=== PATIENT | female | born 1960 | race Caucasian/White ===

== ENCOUNTER 2017-12-13 05:01 | Observation (INO) | payer OTHER ==
[2017-12-13] MEDS ORDERED: LIDOCAINE 1% 2 ML INJ ONE (05:22)
[2017-12-13] MEDS ORDERED: ACETAMINOPHEN 500 MG TAB PO ONE (05:33)
[2017-12-13] MEDS ORDERED: THROMBIN (BOVINE) 5,000 UNIT VIAL TP ONE (05:37)
[2017-12-13] MEDS ORDERED: METHYLENE BLUE 0.5% 50 MG/10 ML AMP ONE (05:38)
[2017-12-13] MEDS ORDERED: EPINEPHrine 30 MG/30 ML MDV (0.1 MG/0.1 ML) ONE (05:38)
[2017-12-13] MEDS ORDERED: LIDO/EPI 2%** Not for Epidural 20 ML MDV ONE (05:38)
[2017-12-13] MEDS ORDERED: BACITRACIN ZINC 14.2 GM OINTTUBE TP ONE (05:39)
[2017-12-13] MEDS ORDERED: ceFAZolin 2 GM/SWFI 2 GM/20 ML SYR IVP ONE (06:00)
[2017-12-13] MEDS ORDERED: LIDOCAINE 1% 2 ML INJ ID PRN (06:46)
[2017-12-13] MEDS ORDERED: LR 1,000 ML IV ONE (06:46)
[2017-12-13] MEDS ORDERED: ceFAZolin 2 GM/SWFI 20 ML SYR IVP ONE (06:52)
[2017-12-13] MEDS ORDERED: MIDAZOLAM 2 MG/2 ML VIAL ONE (07:14)
[2017-12-13] MEDS ORDERED: fentaNYL 100 MCG/2 ML INJ ONE (07:16)
[2017-12-13] MEDS ORDERED: PROPOFOL 200 MG/20 ML VIAL ONE (07:16)
--- NOTE | 2017-12-13 07:18 | PDHPUP ---
History & Physical Update H&P update statement: This history and physical update is based on an assessment of the patient which was completed after admission or registration (within 24 hours), but prior to the surgery/procedure. H&P update: H&P reviewed & patient examined, no change in patient's condition since H&P completed
[2017-12-13] MEDS ORDERED: ONDANSETRON 4 MG/2 ML VIAL ONE ×2 (07:20)
[2017-12-13] MEDS ORDERED: ROCURONIUM 50 MG/5 ML VIAL ONE (07:20)
[2017-12-13] MEDS ORDERED: METOCLOPRAMIDE 10 MG/2 ML VIAL ONE ×2 (07:20)
--- NOTE | 2017-12-13 07:29 | PDANEPAE ---
ANE Past Medical History - Cardiovascular History Hx Hypertension: Yes Hx Arrhythmias: No Hx Chest Pain: No Hx Coronary Artery / Peripheral Vascular Disease: No Hx CHF / Valvular Disease: No Hx Palpitations: No - Pulmonary History Hx COPD: No Hx Asthma/Reactive Airway Disease: No Hx Recent Upper Respiratory Infection: No Hx Oxygen in Use at Home: No Hx Sleep Apnea: No Sleep Apnea Screening Result - Last Documented: Negative - Neurologic History Hx Cerebrovascular Accident: No Hx Seizures: No Hx Dementia: No Neurologic History Comment: DOUBLE VISION - Endocrine History Hx Diabetes: No - Renal History Hx Renal Disorders: No - Liver History Hx Hepatic Disorders: No - Neurological & Psychiatric Hx Hx Neurological and Psychiatric Disorders: No - Cancer History Hx Cancer: No - Congenital Disorder History Hx Congenital Disorders: No - GI History Hx Gastrointestinal Disorders: No - Chronic Pain History Chronic Pain: No - Surgical History Prior Surgeries: TUBAL LIGATION 1992 ANE Review of Systems Review of Systems: - Exercise capacity METS (RN): 4 METS ANE Patient History - Allergies Allergies/Adverse Reactions: No Known Allergies Allergy (Unverified 11/23/17 09:38) - Home Medications Home Medications: Lisinopril/Hctz 20/12.5MG [Zestoretic/Prinzide 20/12.5MG (*)] 1 ea PO DAILY [Last Taken 12/12/17 07:00] Verapamil ER [Calan SR/ER 180MG (*)] 180 mg PO DAILY 11/23/17 [Last Taken 07:00] - NPO status NPO Since - Liquids (Date): 12/12/17 NPO Since - Liquids (Time): 20:00 NPO Since - Solids (Date): 12/12/17 NPO Since - Solids (Time): 19:00 - Smoking Hx Smoking Status: Former smoker ANE Labs/Vital Signs - Vital Signs Blood Pressure: 146/101 Heart Rate: 111 Respiratory Rate: 18 O2 Sat (%): 95 Height: 157.48 cm Weight: 68.039 kg ANE Physical Exam - Airway Mallampati Score: Class 2 - ASA Status ASA Status: II ANE Anesthesia Plan Anesthesia Plan: general endotracheal anesthesia
[2017-12-13] MEDS ORDERED: DEXAMETHASONE 4 MG/ML VIAL ONE ×2 (08:11)
[2017-12-13] MEDS ORDERED: SUGAMMADEX SODIUM 200 MG/2 ML VIAL IVP ONE (08:52)
[2017-12-13] MEDS ORDERED: PHENYLEPHRINE HCL 100 MCG/ML SYR ONE (08:52)
[2017-12-13] MEDS ORDERED: PROMETHAZINE HCL 25 MG/ML INJ IVP PRN (09:08)
[2017-12-13] MEDS ORDERED: LR 500 ML IV PRN (09:08)
[2017-12-13] MEDS ORDERED: fentaNYL 100 MCG/2 ML INJ IVP PRN (09:08)
[2017-12-13] MEDS ORDERED: NALOXONE HCL 0.4 MG/ML INJ IVP PRN (09:08)
--- NOTE | 2017-12-13 09:09 | POSTANESTH ---
Post Anesthetic Evaluation Cardiovascular Status: Normal, Stable Respiratory Status: Normal, Stable Level of Consciousness/Mental Status: Can Participate in Eval Pain Control: Adequate, Prn Tx Ordered Nausea/Vomiting Control: Adequate, Prn Tx Ordered Complications Possibly Related to Anesthesia: None Noted
--- NOTE | 2017-12-13 09:19 | POSTOPPROG ---
Post Op Note Date of Operation: 12/13/17 Surgeon: Brianna Riley Traffic Supervisor: Markos Meyer MD Anesthesiologist: Hasmukh Granados Anesthesia: GET(General Endotracheal) Pre-op Diagnosis: clival mass Post-op Diagnosis: same Procedure: transsphenoidal approach for clival bx Findings: nl sphenoid anatomy, clival mass invading sphenoid Inf/Abcess present in the surg proc area at time of surgery?: No Depth: Superfical (Skin SQ) EBL: Minimal Complications: none apparent
[2017-12-13] MEDS ORDERED: ACETAMINOPHEN 325 MG TAB PO PRN (09:23)
[2017-12-13] MEDS ORDERED: ONDANSETRON DISINTEGRATING 4 MG TAB PO PRN (09:23)
[2017-12-13] MEDS ORDERED: HYDROCODONE/APAP 5/325 TAB PO PRN (09:23)
[2017-12-13] MEDS ORDERED: ONDANSETRON 4 MG/2 ML VIAL IVP PRN (09:23)
[2017-12-13 16:17] VITALS: BP 129/86
--- NOTE | 2017-12-13 17:56 | GOP ---
[f rep st] OPERATIVE REPORT DATE OF OPERATION: 12/13/2017 SURGEON: Jason Meyer MD [employer] SUPERVISOR: Brianna Riley MD. PREOPERATIVE DIAGNOSIS: Clival mass. POSTOPERATIVE DIAGNOSIS: Clival mass. PROCEDURE PERFORMED: 1. Transnasal sphenoidotomy. 2. Endoscopic biopsy of clival lesion. 3. Use of Stealth stereotactic navigation for trajectory planning and biopsy. FINDINGS: INDICATIONS: The patient is a 57-year-old woman who presented with a sixth nerve palsy. Back about 3 or 4 months ago, we had recommended biopsy, but she had sought a few other opinions and seen Neuro- Ophthalmology. CT and subsequent MRI revealed an infiltrating bony mass of the clivus, infiltrating the superior clival bone in the posterior clinoid. She presents today for a transnasal biopsy. DESCRIPTION OF PROCEDURE: After informed consent was obtained from the patient, the patient was brou ght to the operating room and was placed in supine position on the operating table. A formal time-ou t was performed, identifying the patient by name, medical record number, and date of . Preopera tive antibiotics were given. The endotracheal tube was placed and general endotracheal anesthesia wa s smoothly induced. The head was placed in neutral position on a donut headrest and the ENT Stealth unit was then registered to the scalp using electromagnetic tracking and checked for accuracy. The p atient was then prepped and draped in the normal sterile fashion. Dr. Riley then used the nasal en doscope to visualize the nasal cavity and both sphenoid ostia. The ostia were more accessible on the right side, therefore, this opening was widened using Kerrison punches and the mucosal shaver. As w e opened into the sphenoid ostium, the abnormal tissue was seen eroding through the bone of the clivu s just inferior to the sella turcica. 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 Several more pieces were darleen en for permanent section and a few pieces of the bone of the clivus were also removed and taken for p ermanent section. At this point, there was very little bleeding. The biopsy site was covered using FloSeal and there was no further bleeding. The nose was then irrigated using bacitracin irrigation a nd we did not see any reason for further packing or nasal splints at that point. The patient was the n awakened in the operating room and was transferred to the PACU in stable condition. There were no operative complications. Both doctors were scrubbed and present for the entire procedure. All spong e and needle counts were correct at the end of the case. Blood loss was 20 cc. Fluids and urine out put per the anesthesia record. Specimen was clival mass for frozen and permanent section. There wer e no drains. /[id number]/MODL
[2017-12-14] MEDS ORDERED: VERAPAMIL ER 180 MG TAB PO SCH (09:00)
[2017-12-14] MEDS ORDERED: LISINOPRIL/HCTZ 20/12.5MG 1 EA TAB PO SCH (09:00)
--- NOTE | 2017-12-17 13:30 | GOP ---
[f rep st] OPERATIVE REPORT DATE OF OPERATION: 12/13/2017 SURGEON: Brianna Riley MD ANESTHESIA: General. PREOPERATIVE DIAGNOSIS: Clival mass. POSTOPERATIVE DIAGNOSIS: Clival mass. PROCEDURE PERFORMED: 1. Right endoscopic sphenoidotomy. 2. Biopsy of clival mass that had extended into the sphenoid. 3. Stereotactic volumetric navigation of the paranasal sinuses and extradural skull base utilizing t [employer] Fusion System. FINDINGS: The patient was found to have normal nasal anatomy. The mass could be seen growing from t he clivus into the area of the sphenoid. The mass was somewhat friable. Multiple specimens were darleen en for frozen, as well as permanent. ESTIMATED BLOOD LOSS: Minimal. DESCRIPTION OF PROCEDURE: The patient was first seen in the preoperative area where informed consent was obtained. She was then brought back to the operating room where Anesthesia sedated and intubate d her. The bed was turned 190 degrees. She was prepped and draped in a sterile fashion. Epi-soaked pledgets were placed within the nares bilaterally. Once these had sufficient time to act, these wer e removed, and then a 0-degree scope was used to evaluate the nasal cavity bilaterally. She overall had the same amount of space on both sides, and we elected to go through the right. The fusion-guide d head piece was placed on the forehead, and then registered and confirmed to be tracking accurately. Once this was done, a [place] was used under direct visualization to lateralize the middle turbinates until I was able to see the superior turbinate. Straight Aryan-Cut was used to take down the inferior one-third of the superior turbinate, and the microdebrider was used to clean this area up. The fusi on-guided suction was used to confirm the location of the sphenoid os, and then the microdebrider was gently used to widen the membranous portion of the os slightly laterally and inferiorly. Once this was done, a combination of hand instruments, as well as the microdebrider, was used to widen the sphe noid until we had good visualization inside the sphenoid and to the area of the clivus. I did save allison he posterior septal artery pedicle in case she ever needed a septal flap in the future. Once we had this opened, I then gave it over to Dr. Meyer, where he took a biopsy of this clival lesion. Multipl e specimens were taken for frozen and permanent. Once this was done, I retook over. Saline was used to irrigate out the nasal cavity bilaterally. This was suctioned clear. There was no significant a ctive bleeding, and all instruments were removed from the nose and OG suction was used to suction out the stomach and pharynx, and then she was turned back over to Anesthesia, where she was awakened and extubated and taken to PACU in stable condition. There were no complications, and she tolerated the procedure well. All pledget and instrument counts were correct at the end of the procedure. SURGEON: Brianna Riely MD. CO-SURGEON: Jason Meyer MD. COMPLICATIONS: None. PREOPERATIVE NOTE: The patient is a very pleasant 57-year-old woman who presented to Dr. Meyer with some vision changes and a lytic lesion of the clivus on scans. It was felt that she needed a biopsy, and he asked for help with the approach. /[id number]/MODL
== END 2017-12-13 17:37 | disposition home or self-care (01) ==
LOC: INTOOBSV 05:01 → F3N 05:01 → F2N 08:50
PROVIDERS: ADMIT Neurological Surgery; ATTEND Neurological Surgery
PROC: 09BW8ZX Excision of Right Sphenoid Sinus, Via Natural or Artificial Opening Endoscopic, Diagnostic (ICD-10-PCS; principal; 2017-12-13 07:30)
PROC: 4A10X4G Monitoring of Central Nervous Electrical Activity, Intraoperative, External Approach (ICD-10-PCS; principal; 2017-12-13 07:30)
PROC: 0NB Head and Facial Bones, Excision (ICD-10-PCS; principal; 2017-12-13 07:30)
DX: C41.0 Malignant neoplasm of bones of skull and face (principal)
CPT/HCPCS: 64999; 70450; G0378; J0171; J0690; J1100; J2250; J2370; J2405; J2704; J2765; J3010; Q9968

== ENCOUNTER → 2018-01-04 | Outpatient (CLI) | payer OTHER | LOC: BMCIMAGING 10:39 | PROVIDERS: ATTEND Internal Medicine Hematology & Oncology | DX: N63.11 Unspecified lump in the right breast, upper outer quadrant (principal); R59.0 Localized enlarged lymph nodes ==

== ENCOUNTER → 2018-01-08 | Outpatient (CLI) | payer OTHER | LOC: FIMAGING 09:41 | PROVIDERS: ATTEND Nurse Practitioner | DX: R93.7 Abnormal findings on diagnostic imaging of other parts of musculoskeletal system (principal); C50.412 Malignant neoplasm of upper-outer quadrant of left female breast | CPT/HCPCS: 78306; A9503 ==